=== PATIENT | female | born 1975 | race Caucasian/White ===

== ENCOUNTER 2018-02-04 05:40 | Emergency (ER) | payer MEDICAID ==
[~2018-02-04] VITALS: Ht 160 cm; Wt 68.2 kg
[2018-02-04 07:04] LABS: PROTHROMBIN TIME 10.5 SEC (9.4-11.6)
[2018-02-04 07:09] VITALS: BP 125/86
== END 2018-02-04 07:30 | disposition home or self-care (01) ==
LOC: EMS 05:41
DX: K91.841 Postprocedural hemorrhage of a digestive system organ or structure following other procedure (principal)
CPT/HCPCS: 99283